=== PATIENT | female | born 1960 | race Caucasian/White ===

== ENCOUNTER 2016-08-08 18:56 | Emergency (ER) | payer MEDICARE, OTHER ==
[2016-08-08 19:56] LABS: BASO % 0.1 % (0.1-1.2); EOS # 0.1 10_X3_uL (0.0-0.4); EOS % 0.6 % (0.7-5.8); GRAN # 8.2 10_X3_uL (1.6-6.1); GRAN % 80.1 % (34.0-71.1); HEMATOCRIT 34.5 % (34-45); HEMOGLOBIN 10.8 g/dL (11.2-15.7); LYMPH # 1.5 10_X3_uL (1.2-3.7); LYMPH % 14.4 % (19.3-51.7); MEAN CORPUSCULAR HEMOGLOBIN 30.9 pg (27.0-33.0); MEAN CORPUSCULAR HGB CONC 31.3 g/dL (32.0-36.0); MEAN CORPUSCULAR VOLUME 98.6 fL (79-95); MEAN PLATELET VOLUME 10.5 fl (7.5-11.5); MONO # 0.5 10_X3_uL (0.2-0.9); MONO % 4.8 % (4.7-12.5); PLATELET COUNT 194 x10_3/uL (182-369); RED CELL DISTRIBUTION WIDTH 16.8 % (11.7-14.4); WHITE BLOOD COUNT 10.2 x10_3/uL (4.0-10.0)
[2016-08-08 20:16] LABS: CALCIUM 7.4 mg/dL (8.7-10.7); CREATININE 6.6 mg/dL (0.6-1.3)
== END 2016-08-08 21:30 | disposition home or self-care (01) ==
LOC: ER 18:56
PROVIDERS: Internal Medicine
DX: R07.89 Other chest pain (principal); M54.6 Pain in thoracic spine; I12.9 Hypertensive chronic kidney disease with stage 1 through stage 4 chronic kidney disease, or unspecified chronic kidney disease; N18.9 Chronic kidney disease, unspecified; E11.65 Type 2 diabetes mellitus with hyperglycemia; J44.9 Chronic obstructive pulmonary disease, unspecified; Z99.2 Dependence on renal dialysis; Z88.1 Allergy status to other antibiotic agents
CPT/HCPCS: 36415; 71020; 80048; 82550; 82553; 83880; 85025; 85379; 93005; 96374; 99070; 99283-25; 99284; J1170